=== PATIENT | female | born 1940 | race Caucasian/White ===

== ENCOUNTER → 2018-11-14 10:55 | Outpatient (CLI) | payer MEDICARE, SELFPAY ==
--- NOTE | 2018-11-14 11:07 | XR_ITS ---
EXAM: XR cervical spine 5V HISTORY: Neck pain ITS.REASON: DISORDER OF NECK ORDERING PHYSICIAN: Vicente العلي MD PATIENT AGE: 78 years COMPARISON: None FINDINGS: There is straightening of the cervical lordosis. This could be due to patient positioning or muscle spasm. There is degenerative disc disease at C3 C4, C4 C5, C5 C6, and C6-C7 most prominent at C5-6. Mild foraminal narrowing is present on the right C5-C6 and C6 have an. No fracture or dislocation. No lytic or blastic change. There is mild facet and uncovertebral arthritic changes from C4 to C7 with hypertrophy. No evidence of cervical rib. IMPRESSION: Cervical spondylosis with multilevel disc disease along with facet and uncovertebral arthrosis and foraminal narrowing as described above
== END ==
PROVIDERS: PCP Family Medicine; Visit Provider Family Medicine
DX: M53.82 Other specified dorsopathies, cervical region (principal)
CPT/HCPCS: 72050

== ENCOUNTER → 2019-09-05 09:29 | Outpatient (CLI) | payer MEDICARE, SELFPAY ==
--- NOTE | 2019-09-05 09:32 | XR_ITS ---
PROCEDURE: XR DEXA AXIAL SKELETON CLINICAL HISTORY: POSTMENOPAPUSAL COMPARISON: No exams were available for comparison FINDINGS: L1-L4 density is 1.168 grams/centimeter sq with a T-score of -1.0. Left femoral neck density is 0.784 grams/centimeters sq with T-score -1.8 consistent with osteopenia. IMPRESSION: Osteopenia with moderate fracture risk. Treatment advised. Suggest follow-up exam August 2021 Dictated by: Gordo Baker MD 09/05/2019 17:45 Electronically signed by Gordo Baker MD in [place] 09/05/2019 17:45
--- NOTE | 2019-09-05 09:32 | MM_ITS ---
PROCEDURE: MM DIG SCREENING MAMM BI W/CAD CLINICAL INDICATION: SCREENING There is a history of breast cancer the patient's sister diagnosed before menopause. There have been previous biopsies on each breast for benign disease. COMPARISON: DIGMAMMS MAMMOGRAM SCREEN-HOSPITAL TECHNICIAN N/C from 03/09/2010 [facility] DIGITAL MAMM-SCREEN BILATERAL from 07/24/2011 [facility] DIG MAMM-SCREEN LAKISHA from 12/31/2014 TECHNIQUE: Standard CC and MLO images were obtained. R2 CAD reviewed. FINDINGS: Moderate scattered fibroglandular densities are seen in both breasts. There is a mole marker left breast. There is faint arterial calcification in each breast more prominent left than right. There is no suspicious lesion and no suspicious microcalcifications. IMPRESSION: Moderate breast density with no suspicious lesions seen BI-RAD Category: 2 Benign Finding(s) FOLLOW-UP: 1YR 1 Year Follow-up (A letter has been sent to the patient regarding results of the study.) Dictated by: Dr. Nabil Luong MD 09/06/2019 15:[address] Nabil Luong MD in [place] 09/06/2019 15:44
== END ==
PROVIDERS: PCP Family Medicine; Visit Provider Physician Assistant
DX: Z12.31 Encounter for screening mammogram for malignant neoplasm of breast (principal); Z78.0 Asymptomatic menopausal state; M85.89 Other specified disorders of bone density and structure, multiple sites
CPT/HCPCS: 77067; 77080

== ENCOUNTER 2020-06-12 22:32 | Emergency (ER) | payer MEDICARE, SELFPAY ==
[2020-06-12 22:32] VITALS: BP 138/76; PULSE 76; RESP 16; TEMP 37.2; O2SAT 99; BMI 24.5
--- NOTE | 2020-06-12 22:44 | ECG_ITS ---
APPROVED REPORT Exam: Resting ECG HR:84 bpm ECG Measurements Heart Rate 84 AXES MT 170 P 67 QRSd 92 QRS 39 QT 374 T 63 QTc 441 <Conclusion> Normal sinus rhythm Normal ECG Electronically signed by : Mook Pina, 06/13/2020 19:50:42
--- NOTE | 2020-06-12 22:44 | XR_ITS ---
PROCEDURE: XR CHEST 2V CLINICAL HISTORY: chest pain Centralized chest pain COMPARISON: No exams were available for comparison FINDINGS: The cardiomediastinal silhouette and pulmonary vascularity are within normal limits. The lungs are clear without infiltrates, suspicious nodules, or pleural effusions. No acute bony abnormalities. IMPRESSION: No acute findings. Dictated by: Gordo Baker MD 06/13/2020 06:41 Gordo Baker MD in [place] 06/13/2020 06:41
[2020-06-12 22:53] LABS: Basophils # 0.1 K/mm3 (0-0.2); Eosinophils # 0.2 K/mm3 (0.0-0.4); Eosinophils % 2.5 % (0.1-12.0); Hematocrit 40.5 % (37.0-47.0); Hemoglobin 13.5 g/dL (12.2-16.2); Lymphocytes # 2.8 K/mm3 (0.7-4.5); Lymphocytes % 29.8 % (10-50); Mean Corpuscular HGB Conc 33.3 g/dL (31.8-35.4); Mean Corpuscular Hemoglobin 31.7 pg (27.0-31.2); Mean Corpuscular Volume 95.3 fl (81-99); Mean Platelet Volume 7.4 fl (7.4-10.4); Monocytes # 0.8 K/mm3 (0.1-1.0); Monocytes % 8.4 % (1.7-9.3); Neutrophils # 5.5 K/mm3 (1.8-7.8); Neutrophils % 58.3 % (37.0-80.0); Platelet Count 357 K/mm3 (142-424); Red Blood Count 4.25 M/mm3 (4.20-5.40); Red Cell Distribution Width 13.3 % (11.5-17.5); White Blood Count 9.4 K/mm3 (4.8-10.8)
[2020-06-12 23:00] LABS: Anion Gap 12.8 mEq/L (5-15); Blood Urea Nitrogen 24 mg/dl (7-17); Calcium 10.4 mg/dl (8.4-10.2); Carbon Dioxide 32 mmol/L (22.0-30.0); Chloride 96 mmol/L (98-107); Creatinine Clearance Estimated 36 mL/min (50-200); Estimated Glomerular Filt Rate 43 ml/min (>60); GFR (African American) 53 ML/MIN (>60); Glucose 112 mg/dl (74-100); Potassium 3.8 mmoL/L (3.5-5.1); Sodium 137 mmol/L (136-145)
--- NOTE | 2020-06-12 23:08 | HMH.EDGENADL ---
ED Disposition Clinical Impression: Chest pain Qualifiers: Chest pain type: unspecified Qualified Code(s): R07.9 - Chest pain, unspecified Disposition: Home, Self-Care Condition on Discharge: Good Referrals: Marybeth Dotson PA [Primary Care Provider] - - Critical Care Critical Care Time: No Attestation: On 06/12/20, the high probability of a clinically significant, sudden or life threatening deterioration of the following system(s) required my full and direct attention, intervention and personal management. The time I documented below is in addition to time spent performing reported procedures but includes the following listed in this critical care notation. Medical Decision Making - Leonardo Inquiry Pt receiving controlled substance: No Vital Signs: 06/12/20 22:32 06/13/20 00:03 06/13/20 01:16 Temperature 98.9 F Temperature Source Oral Pulse Rate [Right] 76 74 72 Respiratory Rate 16 16 18 Blood Pressure [Right Arm] 138/76 135/64 134/68 Blood Pressure Mean [Right Arm] 96 87 90 Blood Pressure Source [Right Arm] Automatic Cuff Automatic Cuff Blood Pressure Position [Right Arm] Sitting Sitting 02 Sat by Pulse Oximetry 99 98 98 Oxygen Delivery Method Room Air Room Air Room Air - Lab Data Lab Results 06/12/20 22:30: WBC 9.4, RBC 4.25, Hgb 13.5, Hct 40.5, MCV 95.3, MCH 31.7 H, MCHC 33.3, RDW 13.3, Plt Count 357, MPV 7.4, Neut % (Auto) 58.3, Lymph % (Auto) 29.8, Phillips % (Auto) 8.4, Eos % (Auto) 2.5, Baso % (Auto) 1.0, Neut # (Auto) 5.5, Lymph # (Auto) 2.8, Phillips # (Auto) 0.8, Eos # (Auto) 0.2, Baso # (Auto) 0.1 06/12/20 22:30: Sodium 137, Potassium 3.8, Chloride 96 L, Carbon Dioxide 32 H, Anion Gap 12.8, BUN 24 H, Creatinine 1.20 H, Estimated Creat Clear 36, Estimated GFR 43 L, Est GFR ( Amer) 53 L, Glucose 112 H, Calcium 10.4 H, Troponin I < 0.01 06/13/20 00:42: Troponin I < 0.01 Result diagrams: 06/12/20 22:30 06/12/20 22:30 Orders (Tests/Meds): ED MEDICATIONS Discontinued Medications Generic Name Dose Route Start Last Admin Trade Name Alicia PRN Reason Stop Dose Admin Jewel Alkaloids 60 ml 06/12/20 22:58 06/12/20 22:59 Gi Cocktail 60ml Udc PO 06/12/20 22:59 60 ml ONCE ONE Administration ORDERS Category Date Time Status Chest XR 2 view (NOT portable) [XR chest 2V] Stat Exams 06/12/20 22:44 Taken Troponin I Q3H Lab 06/13/20 04:45 Ordered Medical Decision Narrative: In summary patient presents for chest pain. At this point, the exact cause of the patient's current symptom complex is unknown. Initial EKG is nondiagnostic and initial delta troponin testing protocols are within normal limits. At the present time, I doubt pulmonary embolus secondary to the lack of tachycardia, tachypnea, or hypoxia. . Similarly, I doubt aortic dissection or abdominal aortic aneurysm secondary to history and description of pain, the patient's nonfocal vascular examination in all four extremities, and CXR unremarkable for signs of mediastinal widening. Doubt pneumothorax given good bilateral breath sounds and chest X ray with good lung markings out to the periphery. No signs suggestive of pneumonia on history or physical exam as well. General Adult HPI - General Chief complaint: Chest Pain Stated complaint: chest pain Time Seen by Provider: 06/12/20 23:09 Mode of Arrival: Ambulatory Source of Information: Patient Limitations: No Limitations Description of Symptoms (Recalled from ER Triage Doc. by RN): Pt advises she was eating some peanut butter and crackers earlier this evening and started having some in her chest and upper epigastric area, she describes it as a constant pain that would not go away and went into her back. Pt arrives and advises pain is gone at this time. - History of Present Illness HPI narrative: Patient presents for chest pain. Patient has past medical history of hypertension, GERD, gout, patient states that her pain started after she was eating some peanut
[2020-06-12 23:26] LABS: Troponin I < 0.01 ng/ml (0.00-0.034)
[2020-06-13 00:03] VITALS: BP 135/64; PULSE 74; RESP 16; O2SAT 98
[2020-06-13 01:14] LABS: Troponin I < 0.01 ng/ml (0.00-0.034)
[2020-06-13 01:16] VITALS: BP 134/68; PULSE 72; RESP 18; O2SAT 98
[2020-06-13 01:38] VITALS: BP 134/68; PULSE 74; RESP 16; TEMP 36.8; O2SAT 100
== END 2020-06-13 01:39 | disposition home or self-care (01) ==
PROVIDERS: Emergency Provider Emergency Medicine; PCP Physician Assistant
DX: R07.9 Chest pain, unspecified (principal); R10.13 Epigastric pain; I10 Essential (primary) hypertension; K21.9 Gastro-esophageal reflux disease without esophagitis
CPT/HCPCS: 71046; 80048; 84484; 85025; 93005; 99283

== ENCOUNTER → 2020-06-30 11:48 | Outpatient (CLI) | payer MEDICARE, SELFPAY ==
[2020-06-30 13:26] LABS: Potassium 4.8 mmoL/L (3.5-5.1); Uric Acid 4.7 mg/dl (2.5-6.2)
== END ==
PROVIDERS: Visit Provider Family Medicine
DX: E11.69 Type 2 diabetes mellitus with other specified complication (principal); E87.6 Hypokalemia
CPT/HCPCS: 36415; 84132; 84550

== ENCOUNTER 2020-10-18 11:42 | Emergency (ER) | payer MEDICARE, SELFPAY ==
[2020-10-18 13:06] VITALS: BP 137/86; PULSE 73; RESP 19; TEMP 36.6; O2SAT 99; BMI 25.1
--- NOTE | 2020-10-18 13:11 | HMH.EDUTC ---
[facility] [place] Disposition Clinical Impression: UTI (urinary tract infection) Qualifiers: Urinary tract infection type: site unspecified Hematuria presence: without hematuria Qualified Code(s): N39.0 - Urinary tract infection, site not specified Disposition: Home, Self-Care Condition on Discharge: Good Instructions: Urinary Tract Infection, DI for Urinary Tract Infection (UTI), Nitrofurantoin Additional Instructions: *Increase fluids. Water not Soda or Tea *Start antibiotic immediately and be sure to take as ordered for the FULL length of time although you should start to see improvement over the next 48 hours *Be SURE to follow up anytime for new or worsening symptoms with your family doctor. AND in 48 hours for urine culture results with your family doctor, if you do not have a doctor then you may call back to the [facility] for urine culture results and further treatment. We do recommend that you choose and establish care with a Primary Care Physician. AND follow up with them in 10-14 days to repeat UA to ensure infection is resolved and blood no longer present *Be sure to let your PCP know that we sent urine cultures from the [facility] so they can follow up to ensure that you area the on the correct antibiotic Call your doctor office and make appointment for 48 hours (2 days from today) to follow up and get the results of your urine culture and further treatment Return if needed Straight to ER if any life threatening symptoms Prescriptions: Nitrofurantoin Monohyd/M-Cryst [Macrobid 100 mg Capsule] 100 mg PO BID 7 Days #14 cap Transmission Status: Received by [facility] Referrals: Vicente العلي MD [Primary Care Provider] - As needed Time of Disposition: 13:21 Medical Decision Making - Leonardo Inquiry Pt receiving controlled substance: No Leonardo was queried for this patient: No Vital Signs: 10/18/20 13:06 10/18/20 13:21 Temperature 97.8 F 97.8 F Temperature Source Oral Pulse Rate 73 Pulse Rate [Right Brachial] 73 Respiratory Rate 19 19 Blood Pressure 137/86 Blood Pressure [Right Arm] 137/86 Blood Pressure Mean [Right Arm] 103 Blood Pressure Source [Right Arm] Automatic Cuff Blood Pressure Position [Right Arm] Sitting 02 Sat by Pulse Oximetry 99 - Lab Data Lab results reviewed: Yes: I reviewed the patient's lab results. Orders (Tests/Meds): ORDERS Category Date Time Status Urine Culture Stat Micro 10/18/20 12:50 Received [facility] [place] HPI - General Stated complaint: kidney infection Time Seen by Provider: 10/18/20 13:11 Mode of Arrival: Family Vehicle Description of Symptoms (Recalled from Triage Doc. by RN): PT STATES SHE IS HAVING RT SIDE FLANK PAIN X'S 2 DAYS HEENT Symptoms (Recalled from RN notes): No Resp Symptoms (Recalled from RN notes): No Skin Symptoms (Recalled from RN notes): No MS Symptoms (Recalled from RN notes): No Functional Status (Recalled from RN notes): WNL - History of Present Illness Provider Complaint: Patient states that she has been having achy like pain in her right flank area like she has had before when she had a UTI States thats that it has continued to get worse over the last 2-3 days so today she came in to get her urine checked - Related Data Previous Rx's Medication Instructions Recorded Nitrofurantoin Monohyd/M-Cryst 100 mg PO BID 7 Days #14 cap 10/18/20 [Macrobid 100 mg Capsule] Allergies Allergy/AdvReac Type Severity Reaction Status Date / Time NO KNOWN ALLERGIES Allergy Uncoded 10/02/17 14:59 - Worker's Comp Is this a Worker's Comp case?: No [facility] History - Hepatitis A Screen Drug use history?: No High risk sexual behaviors?: No History of sexually transmitted infection?: No Currently employed?: No Childcare worker?: No Do you have indoor plumbing?: Yes Do you have electricity?: Yes Attestation statement:: This patient has been screened for Hepatitis A risk factors. I have reviewed the patient's past medical history: Yes - Soc
[2020-10-18 13:21] VITALS: BP 137/86; PULSE 73; RESP 19; TEMP 36.6; O2SAT 99
[2020-10-18 21:13] LABS: Apearance,Urine Clear (Clear); Bilirubin,Urine Negative (Negative); Blood, Urine Negative (Negative); Color,Urine Yellow (Yellow); Glucose,Urine (UA) Negative (Negative); Ketones,Urine Negative (Negative); PH,Urine 7.5 (5.0-8.5); Protein,Urine Negative (Negative); Specific Gravity, Urine 1.015 (1.005-1.030); UTC Leukocyte Esterase,Urine Negative (Negative); UTC Nitrate,Urine Negative (Negative); Urobilinogen,Urine 0.2 EU/dl (0.2)
== END 2020-10-18 13:27 | disposition home or self-care (01) ==
PROVIDERS: Emergency Provider Nurse Practitioner; PCP Family Medicine
DX: N30.00 Acute cystitis without hematuria (principal)
CPT/HCPCS: G0463; 81003; 87086; 99202

== ENCOUNTER → 2021-03-11 08:32 | Outpatient (CLI) | payer MEDICARE, SELFPAY ==
[2021-03-11 10:06] LABS: Alanine Aminotransferase 15 U/L (12-78); Albumin Level 4.4 g/dl (3.5-5.0); Albumin/Globulin Ratio 1.8 (1.1-1.8); Alkaline Phosphatase 89 U/L (38-126); Anion Gap 10.2 mEq/L (5-15); Aspartate Amino Transferase 26 U/L (14-36); Bilirubin,Total 0.7 mg/dl (0.2-1.3); Blood Urea Nitrogen 22 mg/dl (7-17); Calcium 9.5 mg/dl (8.4-10.2); Carbon Dioxide 30 mmol/L (22.0-30.0); Chloride 103 mmol/L (98-107); Chol/HDL Ratio 3.4 (1-3.5); Cholesterol 206 mg/dl (140-200); Estimated Glomerular Filt Rate 40 ml/min (>60); GFR (African American) 48 ML/MIN (>60); Globulin 2.4 g/dL (1.3-3.2); Glucose 105 mg/dl (74-100); HDL Cholesterol 60 mg/dl (40-60); Potassium 4.2 mmoL/L (3.5-5.1); Sodium 139 mmol/L (136-145); Total Protein,Serum 6.8 g/dl (6.3-8.2); Triglycerides 96 mg/dl (30-150); VLDL Cholesterol 19 mg/dL (0-40)
[2021-03-11 10:16] LABS: Direct LDL Cholesterol 114.63 mg/dL (100-129)
== END ==
PROVIDERS: Visit Provider Internal Medicine Adolescent Medicine
DX: E78.5 Hyperlipidemia, unspecified (principal)
CPT/HCPCS: 36415; 80053; 80061

== ENCOUNTER 2021-07-08 16:08 | Emergency (ER) | payer MEDICARE, SELFPAY ==
[2021-07-08 16:10] VITALS: BP 177/81; PULSE 68; RESP 20; TEMP 37.3; O2SAT 95; BMI 24.5
[2021-07-08 17:02] LABS: Apearance,Urine Clear (Clear); Bilirubin,Urine Negative (Negative); Blood, Urine Negative (Negative); Color,Urine Yellow (Yellow); Glucose,Urine (UA) Negative (Negative); Ketones,Urine Negative (Negative); PH,Urine 6.5 (5.0-8.5); Protein,Urine Negative (Negative); UTC Leukocyte Esterase,Urine 1+ (Negative); UTC Nitrate,Urine Negative (Negative); Urobilinogen,Urine 0.2 EU/dl (0.2)
--- NOTE | 2021-07-08 17:11 | HMH.EDUTC ---
[facility] [place] Disposition Clinical Impression: UTI (urinary tract infection) Qualifiers: Urinary tract infection type: site unspecified Hematuria presence: with hematuria Qualified Code(s): N39.0 - Urinary tract infection, site not specified Disposition: Home, Self-Care Condition on Discharge: Good Instructions: Urinary Tract Infection, DI for Urinary Tract Infection (UTI), Phenazopyridine Additional Instructions: Drink plenty of fluids. Take tylenol or ibuprofen for pain or fever. Take the medications as directed. Follow up with your regular doctor. GO TO THE ER FOR ANY WORSENING SYMPTOMS The pyridium will make your urine turn orange, this is an expected side effect. It will stain your clothes if it comes into contact with them. Prescriptions: Sulfamethoxazole/Trimethoprim [Bactrim DS tablet] 1 each PO BID 7 Days #14 tab Transmission Status: Received by [facility] Phenazopyridine HCl [Pyridium 200mg Tablet] 200 pow PO TID #6 tab Transmission Status: Received by [facility] Referrals: Huey Tracy MD [Primary Care Provider] - Time of Disposition: 17:20 Medical Decision Making - Medical Records Medical records reviewed: No: I reviewed the patient's medical records. - Leonardo Inquiry Pt receiving controlled substance: No Vital Signs: 07/08/21 16:10 07/08/21 17:23 Temperature 99.2 F 99.2 F Temperature Source Oral Pulse Rate 68 Pulse Rate [Right Brachial] 68 Respiratory Rate 20 20 Blood Pressure 177/81 H Blood Pressure [Right Arm] 177/81 H Blood Pressure Mean [Right Arm] 113 Blood Pressure Source [Right Arm] Automatic Cuff Blood Pressure Position [Right Arm] Sitting 02 Sat by Pulse Oximetry 95 Oxygen Delivery Method Room Air - Lab Data Lab results reviewed: Yes: I reviewed the patient's lab results. Lab Results 07/08/21 16:53: Urine Color Yellow, Urine Appearance Clear, Urine pH 6.5, Ur Specific [place] 1.020, Urine Protein Negative, Urine Glucose (UA) Negative, Urine Ketones Negative, Urine Blood Negative, Urine Nitrate Negative, Urine Bilirubin Negative, Urine Urobilinogen 0.2, Ur Leukocyte Esterase 1+ A Orders (Tests/Meds): ORDERS Category Date Time Status Urine Culture Stat Micro 07/08/21 16:35 Received [facility] [place] HPI - General Stated complaint: possible UTI or bladdler Time Seen by Provider: 07/08/21 17:11 Mode of Arrival: Ambulatory Source of Information: Patient Limitations: No Limitations Description of Symptoms (Recalled from Triage Doc. by RN): PATIENT C/O LOWER BACK PAIN X 1 WEEK. ALSO REPORTS A FEW EPISODES OF PELVIC PRESSURE AND URINARY FREQUENCY HEENT Symptoms (Recalled from RN notes): No Resp Symptoms (Recalled from RN notes): No Skin Symptoms (Recalled from RN notes): No MS Symptoms (Recalled from RN notes): No Functional Status (Recalled from RN notes): WNL - History of Present Illness Provider Complaint: She states that for the past 2 days she has has had burning with urination. She has had low back pain also. - Related Data Home Medications Medication Instructions Recorded Confirmed Aspirin [Aspirin 81mg chewable 81 mg PO DAILY 07/08/21 07/08/21 tab] Atorvastatin Calcium [Lipitor 10mg 10 mg PO HS 07/08/21 07/08/21 Tab] Triamterene/Hydrochlorothiazid 1 each PO DAILY 07/08/21 07/08/21 [Triamterene-Hctz 37.5-25 mg Tb] atenoloL [Atenolol 25mg Tab] 25 mg PO DAILY 07/08/21 07/08/21 Previous Rx's Medication Instructions Recorded Phenazopyridine HCl [Pyridium 200 pow PO TID #6 tab 07/08/21 200mg Tablet] Sulfamethoxazole/Trimethoprim 1 each PO BID 7 Days #14 tab 07/08/21 [Bactrim DS tablet] Allergies Allergy/AdvReac Type Severity Reaction Status Date / Time No Known Allergies Allergy Verified 07/08/21 16:50 - Worker's Comp Is this a Worker's Comp case?: No [facility] History - Hepatitis A Screen Drug use history?: No High risk sexual behaviors?: No History of sexually transmitte
[2021-07-08 17:23] VITALS: BP 177/81; PULSE 68; RESP 20; TEMP 37.3; O2SAT 95
== END 2021-07-08 17:28 | disposition home or self-care (01) ==
PROVIDERS: Emergency Provider Nurse Practitioner Family; PCP Internal Medicine Adolescent Medicine
DX: N30.00 Acute cystitis without hematuria (principal)
CPT/HCPCS: G0463; 81003; 87086; 99202

== ENCOUNTER → 2021-08-02 11:39 | Outpatient (CLI) | payer MEDICARE, SELFPAY ==
[2021-08-02 11:57] LABS: Basophils # 0.1 K/mm3 (0-0.2); Basophils % 0.6 % (0.1-2.0); Eosinophils # 0.2 K/mm3 (0.0-0.4); Eosinophils % 2.6 % (0.1-12.0); Hematocrit 43.4 % (37.0-47.0); Hemoglobin 13.7 g/dL (12.2-16.2); Lymphocytes # 1.2 K/mm3 (0.7-4.5); Mean Corpuscular HGB Conc 31.5 g/dL (31.8-35.4); Mean Corpuscular Hemoglobin 31.1 pg (27.0-31.2); Mean Corpuscular Volume 98.9 fl (81-99); Mean Platelet Volume 6.9 fl (7.4-10.4); Monocytes # 0.4 K/mm3 (0.1-1.0); Monocytes % 5.2 % (1.7-9.3); Neutrophils # 5.7 K/mm3 (1.8-7.8); Neutrophils % 75.5 % (37.0-80.0); Platelet Count 356 K/mm3 (142-424); Red Blood Count 4.39 M/mm3 (4.20-5.40); Red Cell Distribution Width 12.7 % (11.5-17.5); White Blood Count 7.5 K/mm3 (4.8-10.8)
[2021-08-02 13:28] LABS: Erythrocyte Sedimentation Rate 17 mm/hr (0-30)
[2021-08-02 13:31] LABS: 25-OH Vitamin D, Total 49.8 ng/mL (30-100)
[2021-08-02 14:07] LABS: Alanine Aminotransferase 20 U/L (12-78); Albumin Level 4.4 g/dl (3.5-5.0); Albumin/Globulin Ratio 1.6 (1.1-1.8); Alkaline Phosphatase 93 U/L (38-126); Anion Gap 13.7 mEq/L (5-15); Aspartate Amino Transferase 32 U/L (14-36); Bilirubin,Total 0.5 mg/dl (0.2-1.3); Blood Urea Nitrogen 16 mg/dl (7-17); Calcium 10.1 mg/dl (8.4-10.2); Carbon Dioxide 32 mmol/L (22.0-30.0); Chloride 100 mmol/L (98-107); Cholesterol 204 mg/dl (140-200); Estimated Glomerular Filt Rate 53 ml/min (>60); GFR (African American) 65 ML/MIN (>60); Globulin 2.8 g/dL (1.3-3.2); Glucose 108 mg/dl (74-100); HDL Cholesterol 67 mg/dl (40-60); Potassium 4.7 mmoL/L (3.5-5.1); Sodium 141 mmol/L (136-145); Total Protein,Serum 7.2 g/dl (6.3-8.2); Triglycerides 123 mg/dl (30-150); VLDL Cholesterol 25 mg/dL (0-40)
[2021-08-02 14:18] LABS: C-Reactive Protein 2.2 mg/L (0-4); Direct LDL Cholesterol 99.95 mg/dL (100-129)
[2021-08-02 14:37] LABS: Thyroid Stimulating Hormone 1.58 uIU/mL (0.465-4.68)
[2021-08-02 14:56] LABS: Vitamin B12 295 pg/mL (239-931)
[2021-08-03 12:24] LABS: Hemoglobin A1C 5.8 % (4.0-6.0)
== END ==
PROVIDERS: Visit Provider Nurse Practitioner Family
DX: Z00.00 Encounter for general adult medical examination without abnormal findings (principal); I10 Essential (primary) hypertension; E78.5 Hyperlipidemia, unspecified; R53.83 Other fatigue; M12.9 Arthropathy, unspecified; R73.9 Hyperglycemia, unspecified
CPT/HCPCS: 36415; 80053; 80061; 82306; 82607; 83036; 84443; 85025; 85651; 86140

== ENCOUNTER → 2021-08-15 15:58 | Outpatient (CLI) | payer MEDICARE, SELFPAY | PROVIDERS: Visit Provider Nurse Practitioner Family | DX: R31.9 Hematuria, unspecified (principal) | CPT/HCPCS: 87086; 87088; 87186 ==

== ENCOUNTER → 2021-09-01 16:48 | Outpatient (CLI) | payer MEDICARE, SELFPAY | PROVIDERS: Visit Provider Nurse Practitioner Family | DX: R31.9 Hematuria, unspecified (principal) | CPT/HCPCS: 87086 ==

== ENCOUNTER → 2022-01-19 06:41 | Outpatient (CLI) | payer MEDICARE, SELFPAY ==
--- NOTE | 2022-01-19 06:48 | CT_ITS ---
FINAL REPORT TECHNIQUE: Axial images through the abdomen and pelvis were performed without contrast. This study was performed with techniques to keep radiation doses as low as reasonably achievable, (ALARA). Individualized dose reduction techniques using automated exposure control or adjustment of mA and/or kV according to the patient's size were employed. CLINICAL HISTORY: RIGHT FLANK PAIN, hematuria FINDINGS: ABDOMEN: The lung bases are clear. The heart size is normal. There is a small hiatal hernia. There is a 5.7 cm mass in left hepatic lobe which cannot be accurately characterized without contrast, favor a cyst. The spleen is normal. No adrenal mass is identified. The aorta is normal in caliber. There is no significant free fluid or adenopathy. There is moderate coronary artery calcification. There is a 13 mm mass in the upper pole of the left kidney which cannot be accurately characterized without contrast, may represent a cyst. There is no nephrolithiasis. There is no hydronephrosis. There is a small umbilical hernia containing fat. Small inguinal hernias containing fat are also identified. PELVIS: The appendix is not identified. The urinary bladder is unremarkable. There is no significant free fluid or adenopathy. IMPRESSION: Hepatic and renal masses as detailed above. If indicated, CT abdomen and pelvis with contrast could further evaluate. Umbilical and inguinal hernias containing fat. Reviewed, Interpreted and Dictated by Willam Cotto III, MD Transcribed by Karina Corcoran Authenticated by Willam Cotto III, MD on 01/19/2022 08:34:52 AM [facility]
== END ==
PROVIDERS: PCP Internal Medicine Adolescent Medicine; Visit Provider Internal Medicine Adolescent Medicine
DX: R10.9 Unspecified abdominal pain (principal)
CPT/HCPCS: 74176

== ENCOUNTER → 2022-02-16 08:26 | Outpatient (CLI) | payer MEDICARE, SELFPAY ==
--- NOTE | 2022-02-16 08:50 | CT_ITS ---
FINAL REPORT CLINICAL HISTORY: RT FLANK PAIN COMPARISON: January 19, 2022 FINDINGS: CT OF THE ABDOMEN AND PELVIS WITH CONTRAST Axial CT images of the abdomen and pelvis were obtained after the administration of IV contrast. Coronal reformatted images were also obtained and reviewed.This study was performed with techniques to keep radiation doses as low as reasonably achievable (ALARA). Individualized dose reduction techniques using automated exposure control or adjustment of mA and/or kV according to the patient's size were employed. Abdomen: There is mild bibasilar atelectasis or scarring. The heart is normal in size. A small hiatal hernia is present. There are moderate vascular calcifications. The 6 cm left hepatic lobe mass does not show evidence of contrast enhancement and is consistent with a cyst. There is a less than 1 cm cyst in the inferior right hepatic lobe. The spleen is unremarkable. No adrenal mass is present. The pancreas has an unremarkable appearance. The 15 mm left kidney mass also has an appearance consistent with a cyst. There is a less than 1 cm cyst in the lower pole of the right kidney. There is an 8 mm mass in the medial right kidney which does not appear to be a simple cyst. This mass probably shows contrast enhancement along its medial border and is worrisome for a small renal neoplasm such as renal cell carcinoma. This is well visualized on image 39 of series 2 and image 31 of series 601. The aorta is normal in caliber. There is no free fluid or adenopathy. No mass or abnormal fluid collection is seen. There is a small umbilical hernia containing fat. Pelvis: The urinary bladder is unremarkable. No inflammatory process is seen. There is no evidence of mass or adenopathy. There is no evidence of bowel obstruction. There is scattered diverticula. There are small inguinal hernias containing fat. There is a small amount of pelvic free fluid which is likely reactive. IMPRESSION: 8 mm mass in the medial right kidney which is worrisome for a small renal neoplasm. Other renal cysts and hepatic cysts as described. Small amount of pelvic free fluid is likely reactive. Reviewed, Interpreted and Dictated by Willam Cotto III, MD Transcribed by Angelic Leos Authenticated by Willam Cotto III, MD on 02/16/2022 11:20:39 AM [facility]
[2022-02-16 08:51] LABS: Blood Urea Nitrogen 17 mg/dl (7-17); Estimated Glomerular Filt Rate 69 ml/min (>60); GFR (African American) 84 ML/MIN (>60)
== END ==
PROVIDERS: PCP Internal Medicine Adolescent Medicine; Visit Provider Internal Medicine Adolescent Medicine
DX: R10.9 Unspecified abdominal pain (principal)
CPT/HCPCS: 36415; 74177; 82565; 84520; Q9967

== ENCOUNTER → 2022-03-02 13:21 | Outpatient (CLI) | payer MEDICARE, SELFPAY ==
--- NOTE | 2022-03-02 13:25 | XR_ITS ---
FINAL REPORT CLINICAL HISTORY: LT POSTERIOR MID BACK PAIN HX OF RT RENAL MASS COMPARISON: June 12, 2020 FINDINGS: LEFT RIB SERIES 4 views of the left ribs were obtained. There is a left 11th posterior rib fracture. There is mild left base atelectasis or scarring. There is no pneumothorax or pleural fluid collection. IMPRESSION: Left 11th posterior rib fracture. Mild left base atelectasis or scarring. Reviewed, Interpreted and Dictated by Willam Cotto III, MD Transcribed by Kerry Cole Authenticated by Willam Cotto III, MD on 03/02/2022 02:42:50 PM [facility]
--- NOTE | 2022-03-02 13:25 | XR_ITS ---
FINAL REPORT TECHNIQUE: 2 views CLINICAL HISTORY: LT POSTERIOR MID BACK PAIN HX OF RT RENAL MASS FINDINGS: There is no fracture present. There is no malalignment. There is mild degenerative change of the lower thoracic spine. IMPRESSION: Degenerative change as above with no acute process. Reviewed, Interpreted and Dictated by Willam Cotto III, MD Transcribed by Kerry Cole Authenticated by Willam Cotto III, MD on 03/02/2022 02:42:[address] [facility]
== END ==
PROVIDERS: PCP Internal Medicine Adolescent Medicine; Visit Provider Nurse Practitioner Family
DX: M54.6 Pain in thoracic spine (principal); N28.89 Other specified disorders of kidney and ureter
CPT/HCPCS: 71101; 72072

== ENCOUNTER → 2022-04-07 11:53 | Outpatient (CLI) | payer MEDICARE, SELFPAY ==
--- NOTE | 2022-04-07 11:59 | XR_ITS ---
FINAL REPORT CLINICAL HISTORY: LEFT HIP PAIN. LOW BACK PAIN. OTHER CHRONIC PAIN. Pt states she believes that she is having sciatic pain. FINDINGS: 5 views of the lumbar spine were obtained. There is no evidence of fracture or dislocation. There is right lateral subluxation of L2 in relation to L1 and right lateral subluxation of L3 in relation to L4. There are moderate to severe degenerative changes. There is vacuum phenomenon at L3-4. Rightward curvature is noted. There are moderate vascular calcifications. IMPRESSION: Right lateral subluxation as above. Degenerative changes. Reviewed, Interpreted and Dictated by Willam Cotto III, MD Transcribed by Kerry Cole Authenticated and [facility]
--- NOTE | 2022-04-07 11:59 | XR_ITS ---
FINAL REPORT CLINICAL HISTORY: Pt states that she has been experiencing lt hip pain more severely for the last 4 weeks. No known trauma. FINDINGS: LEFT HIP: Three views of the left hip demonstrate no acute fracture or dislocation. The joint spaces appear normal. The visualized bony structures are well aligned. Mild vascular calcifications are seen. IMPRESSION: No acute bony abnormality. Reviewed, Interpreted and Dictated by Willam Cotto III, MD Transcribed by Kerry Cole Authenticated and [facility]
== END ==
PROVIDERS: PCP Nurse Practitioner Family; Visit Provider Nurse Practitioner Family
DX: M25.552 Pain in left hip (principal); M54.50 Low back pain, unspecified; G89.29 Other chronic pain
CPT/HCPCS: 72110; 73502

== ENCOUNTER → 2022-09-16 10:18 | Outpatient (CLI) | payer MEDICARE, SELFPAY | PROVIDERS: PCP Internal Medicine Adolescent Medicine; Visit Provider Nurse Practitioner Family | DX: R30.0 Dysuria (principal) | CPT/HCPCS: 87086 ==

== ENCOUNTER 2023-04-14 00:33 | Emergency (ER) | payer MEDICARE, SELFPAY ==
[2023-04-14] VITALS (7 sets, daily range): BP systolic 168–220; BP diastolic 85–113; PULSE 74–86; RESP 12–19; TEMP 36.8–36.9; O2SAT 95–98; BMI 25.9
--- NOTE | 2023-04-14 00:49 | ECG_ITS ---
APPROVED REPORT Exam: Resting ECG HR:82 bpm ECG Measurements Heart Rate 82 AXES LA 168 P 67 QRSd 106 QRS 66 QT 379 T 76 QTc 417 Conclusion SINUS RHYTHM POSSIBLE RIGHT VENTRICULAR CONDUCTION DELAY [RSR (QR) IN V1/V2] BORDERLINE ECG UNCONFIRMED REPORT Electronically signed by : Huey Tracy MD 04/14/2023 15:03:25
--- NOTE | 2023-04-14 01:01 | XR_ITS ---
PROCEDURE INFORMATION: Exam: XR Chest Exam date and time: 04/14/2023 1:01 AM Age: 83 years old Clinical indication: Other: HTN; Additional info: Severe HTN TECHNIQUE: Imaging protocol: Radiologic exam of the chest. Views: 1 view. COMPARISON: CR XR RIBS LT MIN 3V W CXR1V 03/02/2022 1:30 PM FINDINGS: Lungs: Moderate lung expansion. Mild left basilar atelectasis. No consolidation. Pleural spaces: No pleural effusion. No pneumothorax. Heart/Mediastinum: Stable cardiomediastinal silhouette. Diaphragm: Chronic mild elevation of the left hemidiaphragm. Bones/joints: No acute osseous abnormality. IMPRESSION: No acute findings.
--- NOTE | 2023-04-14 01:02 | PC.NURSE ---
Pt medicated per VO from MD. Call barnes within reach and pt educated on use. Visitor at beside, and pt agreeable with POC
--- NOTE | 2023-04-14 01:03 | HMH.EDGENADL ---
Discharge Plan Disposition Patient Disposition: Home, Self-Care Condition: Good Chief Complaint: Headache Prescriptions Prescriptions: No Action omeprazole 20 mg capsule,delayed release(DR/EC) 20 mg PO DAILY atorvastatin 10 MG tablet 10 mg PO HS aspirin 81 MG tablet,chewable 81 mg PO DAILY carvedilol 12.5 mg Tablet 12.5 mg PO BID Rx Instructions: must administer with a meal/food Referrals Follow up/Referrals: Huey Long MD [Primary Care Provider] - See instructions Activity Restrictions/Add. Instructions Additional Instructions/Restrictions: At this time is felt you are safe to be discharged home. If new or worsening symptoms please not hesitate to return the emergency department. If symptoms such as chest pain, shortness of breath, if your blood pressure gets greater than 220 please return for repeat evaluation. Please follow-up with your family doctor in the morning for medication adjustment otherwise follow-up as soon as you are able. Clinical Impressions Clinical Impression: Hypertensive urgency Discharge ED Provider: Regulo Manuel General Adult HPI General Chief complaint: Headache Stated complaint: BP medicine was changed, now with HBP Time Seen by Provider: 04/14/23 00:45 Mode of Arrival: Ambulatory Source of Information: Patient Limitations: No Limitations Description of Symptoms (Recalled from ER Triage Doc. by RN): 83 F presents from home concerned about her blood pressure being too high. She report Dr. long changed her BP medications on Sunday because of kidney issues, and her new single BP medication is not working. Patient reports headache and blurry vision. Denies chest pain or shortness of air. History of Present Illness HPI narrative: Patient is an 83-year-old female with past medical history of hypertension previously on multiple medications, CKD, right renal mass currently under surveillance who presents emergency department for evaluation of elevated blood pressure. History is obtained by patient at bedside. Patient was recently changed from triamterene/hydrochlorothiazide and atenolol to 12.5 mg of carvedilol twice daily. After taking her evening dose she has noticed that her blood pressure has been continuing to climb and has resulted in pressure between her temples. Patient denies chest pain, shortness of breath, visual blurriness, other acute complaints at this time. Related Data Home Medications Medication Instructions Recorded Confirmed aspirin 81 mg chewable tablet 81 mg PO DAILY Heart disease 07/08/21 04/14/23 atorvastatin 10 mg tablet 10 mg PO HS Cholesterol 07/08/21 04/14/23 omeprazole 20 mg capsule,delayed 20 mg PO DAILY Acid Reflux 03/30/22 04/14/23 release carvedilol 12.5 mg tablet 12.5 mg PO BID High Blood Pressure 04/14/23 04/14/23 Allergies Allergy/AdvReac Type Severity Reaction Status Date / Time No Known Allergies Allergy Verified 03/30/22 09:22 [facility] Disclaimer: The information contained in this section may have been updated after the patient was seen, as this information can be updated by other users. Social History Smoking Status: Never smoker alcohol intake: never substance use type: denies use current occupational status: retired Travel in the last 8 weeks: None household members: none housing: house ROS Obtained: Yes Systems reviewed as appropriate & no additional complaints except as documented Physical Exam General General appearance: alert and in no apparent distress Head Head exam: atraumatic and normocephalic Eye Eye exam: Present PERRL and EOMI ENT ENT exam: Present mucous membranes moist Neck Neck exam: Present normal inspection Chest Chest inspection: Present normal inspection and symmetric chest wall rise Respiratory Respiratory exam: Present normal lung sounds bilaterally; Absent respiratory distress Cardiovascular Cardiovascular exam: Present regular rate and
[2023-04-14 01:06] LABS: Basophils % 0.5 % (0.1-2.0); Eosinophils # 0.2 K/mm3 (0.0-0.4); Eosinophils % 2.7 % (0.1-12.0); Hematocrit 39.1 % (37.0-47.0); Hemoglobin 12.1 g/dL (12.2-16.2); Lymphocytes # 2.2 K/mm3 (0.7-4.5); Lymphocytes % 27.9 % (10-50); Mean Corpuscular HGB Conc 30.9 g/dL (31.8-35.4); Mean Corpuscular Hemoglobin 29.4 pg (27.0-31.2); Mean Corpuscular Volume 95.2 fl (81-99); Mean Platelet Volume 7.3 fl (7.4-10.4); Monocytes # 0.6 K/mm3 (0.1-1.0); Neutrophils # 4.9 K/mm3 (1.8-7.8); Neutrophils % 61.8 % (37.0-80.0); Platelet Count 333 K/mm3 (142-424); Red Blood Count 4.11 M/mm3 (4.20-5.40); Red Cell Distribution Width 13.2 % (11.5-17.5); White Blood Count 7.9 K/mm3 (4.8-10.8)
[2023-04-14 01:08] LABS: Chloride 103 mmol/L (98-107); Sodium 139 mmol/L (136-145)
[2023-04-14 01:09] LABS: Potassium 3.8 mmoL/L (3.5-5.1)
[2023-04-14 01:11] LABS: Alanine Aminotransferase 21 U/L (12-78); Albumin Level 4.1 g/dl (3.5-5.0); Albumin/Globulin Ratio 1.4 (1.1-1.8); Alkaline Phosphatase 103 U/L (38-126); Anion Gap 11.8 mEq/L (5-15); Aspartate Amino Transferase 32 U/L (14-36); Bilirubin,Total 0.3 mg/dl (0.2-1.3); Blood Urea Nitrogen 18 mg/dl (7-17); Carbon Dioxide 28 mmol/L (22.0-30.0); Creatinine Clearance Estimated 38 mL/min (50-200); Estimated Glomerular Filt Rate 48 ml/min (>60); GFR (African American) 58 ML/MIN (>60); Globulin 2.9 g/dL (1.3-3.2)
[2023-04-14 01:12] LABS: Glucose 107 mg/dl (74-100)
[2023-04-14 01:25] LABS: Troponin I < 0.01 ng/ml (0.00-0.034)
== END 2023-04-14 02:03 | disposition home or self-care (01) ==
PROVIDERS: Emergency Provider Emergency Medicine; PCP Internal Medicine Adolescent Medicine
DX: I16.0 Hypertensive urgency (principal); I10 Essential (primary) hypertension
CPT/HCPCS: 71045; 80053; 84484; 85025; 93005; 93041; 96374; 99284

== ENCOUNTER 2023-04-14 10:06 | Emergency (ER) | payer MEDICARE, SELFPAY ==
[2023-04-14 10:07] VITALS: BP 190/87; PULSE 78; RESP 16; TEMP 36.8; O2SAT 96; BMI 25.9
--- NOTE | 2023-04-14 10:22 | EXP.UTC ---
Discharge Plan Disposition Patient Disposition: Home, Self-Care Condition: Good Prescriptions Prescriptions: New triamterene-hydrochlorothiazid 37.5-25 mg capsule 1 cap PO DAILY Qty: 30 0RF No Action omeprazole 20 mg capsule,delayed release(DR/EC) 20 mg PO DAILY atorvastatin 10 MG tablet 10 mg PO HS aspirin 81 MG tablet,chewable 81 mg PO DAILY carvedilol 12.5 mg Tablet 12.5 mg PO BID Rx Instructions: must administer with a meal/food Referrals Follow up/Referrals: Huey Tracy MD [Primary Care Provider] - See instructions Activity Restrictions/Add. Instructions Additional Instructions/Restrictions: Take coreg (carvedilol) 12.5 mg tablets--Take 2 in the morning and one at night. Restart on your triamterene/hctz 37.5/25 mg tablets daily. Follow up with your primary care provider on Sunday. Follow their instructions from then on. GO TO THE ER FOR ANY WORESNING SYMPTOMS OR CONCERNS, ESPECIALLY ANY ELEVATED BLOOD PRESSURE ABOVE 200/110. Clinical Impressions Clinical Impression: Hypertension Instructions Patient Instructions: Essential Hypertension Discharge ED Provider: Jarek Castro [facility] General Stated complaint: head pressure, blood pressure high Time Seen by Provider: 04/14/23 10:22 History of Present Illness Provider Complaint: He is here with complaints of hypertension with head pressure. She was in the ER last night with the same complaint. She states that earlier in the week her pcp switched her blood pressure meds around (stopped trimterine/hctz and atenolol and started on coreg) because she had some renal insufficiency that showed up on her blood work. She states that before her blood pressure meds were changed she never had very high blood pressures. Since they were changed she has ran up to 210/110. She denies any chest pain and shortness of breath. Related Data Home Medications Medication Instructions Recorded Confirmed aspirin 81 mg chewable tablet 81 mg PO DAILY Heart disease 07/08/21 04/14/23 atorvastatin 10 mg tablet 10 mg PO HS Cholesterol 07/08/21 04/14/23 omeprazole 20 mg capsule,delayed 20 mg PO DAILY Acid Reflux 03/30/22 04/14/23 release carvedilol 12.5 mg tablet 12.5 mg PO BID High Blood Pressure 04/14/23 04/14/23 Previous Rx's Medication Instructions Recorded triamterene 37.5 1 cap PO DAILY #30 caps 04/14/23 mg-hydrochlorothiazide 25 mg capsule Allergies Allergy/AdvReac Type Severity Reaction Status Date / Time No Known Allergies Allergy Verified 03/30/22 09:22 [facility] Disclaimer: The information contained in this section may have been updated after the patient was seen, as this information can be updated by other users. Social History Smoking Status: Never smoker alcohol intake: never substance use type: denies use current occupational status: retired Travel in the last 8 weeks: None household members: none housing: house ROS Obtained: Yes All systems reviewed & no additional complaints except as documented Constitutional Constitutional: Denies chills and Denies fever(s) Eyes Eyes: Denies eye discharge ENT Ears, Nose, Mouth, and Throat: Denies dizziness, Denies otalgia and Denies sore throat Cardiovascular Cardiovascular: Denies chest pain Respiratory Respiratory: Denies shortness of breath, Denies chest congestion, Denies cough, Denies stridor and Denies wheezing Gastrointestinal Gastrointestingal: Denies nausea or vomiting Musculoskeletal Musculoskeletal: Reports system reviewed and no additional complaints, except as documented and Denies arthralgias Integumentary/Breasts Skin/Breast: Denies rash Neurologic Neurologic: Denies dizziness and Denies paresthesias Allergic/Immunologic Allergic/Immunologic: Denies wheezing Physical Exam General General appearance: alert and in no apparent distress Head Head exam: atraumatic, normocephalic and normal inspection
[2023-04-14 11:22] VITALS: BP 180/90
[2023-04-14 11:49] VITALS: BP 180/90; PULSE 78; RESP 16; TEMP 36.8; O2SAT 96
== END 2023-04-14 11:55 | disposition home or self-care (01) ==
PROVIDERS: Emergency Provider Nurse Practitioner Family; PCP Internal Medicine Adolescent Medicine
DX: I10 Essential (primary) hypertension (principal); R51.9 Headache, unspecified; I16.0 Hypertensive urgency
CPT/HCPCS: 71045; 80053; 84484; 85025; 93005; 93041; 96374; 99212; 99214; 99284; G0463

== ENCOUNTER → 2023-04-18 10:27 | Outpatient (CLI) | payer MEDICARE, SELFPAY ==
--- NOTE | 2023-04-18 10:40 | MM_ITS ---
PROCEDURE INFORMATION: Exam: MG Bilateral Screening 3D Mammography Exam date and time: 04/18/2023 10:35 AM Age: 83 years old Clinical indication: Screening mammogram TECHNIQUE: Imaging protocol: Bilateral Screening tomosynthesis and 2D mammography including computer-aided detection (CAD) when performed. COMPARISON: 1. MG MM DIG SCREENING MAMM BI W/CAD 09/05/2019 10:10 AM 2. MG DMSB DIG MAMM-SCREEN LAKISHA 12/31/2014 10:17 AM 3. MG DMSB DIGITAL MAMM-SCREEN BILATERAL 07/24/2011 4:47 PM 4. MG DIGMAMMS MAMMOGRAM SCREEN-ACQUISITION EDITOR N/C 03/09/2010 2:37 PM FINDINGS: MAMMOGRAPHY: Breast composition: There are scattered areas of fibroglandular density. Mass: None. Architectural distortion: No new or suspicious architectural distortion. Calcifications: Stable benign-appearing calcifications are present. No new or suspicious cluster of microcalcifications have developed. Asymmetric density: No new or suspicious asymmetric density is present Skin thickening: None. Axillary adenopathy: None. IMPRESSION: No mammographic evidence of malignancy. Recommend annual screening mammography unless otherwise clinically indicated. ASSESSMENT: BI-RADS category 2: Benign
== END ==
PROVIDERS: PCP Nurse Practitioner Family; Visit Provider Physician Assistant
DX: Z12.31 Encounter for screening mammogram for malignant neoplasm of breast (principal); R06.02 Shortness of breath
CPT/HCPCS: 77063; 77067; 93306

== ENCOUNTER → 2023-07-05 10:58 | Outpatient (CLI) | payer MEDICARE, SELFPAY ==
--- NOTE | 2023-07-05 11:01 | XR_ITS ---
FINAL REPORT CLINICAL HISTORY: NECK PAIN COMPARISON: None FINDINGS: CERVICAL SPINE 5 views were obtained. There is no acute fracture or malalignment. There is moderate disc space narrowing at C5-6. There is loss of the normal cervical lordosis. There are small posterior osteophytes at C5-6 and C6-7. Facet joints are properly aligned. IMPRESSION: Degenerative changes without acute process. Reviewed, Interpreted and Dictated by Rajiv Avila MD Transcribed by Kerry Cole Authenticated and [facility]
--- NOTE | 2023-07-05 11:01 | XR_ITS ---
FINAL REPORT CLINICAL HISTORY: Right upper arm pain COMPARISON: None FINDINGS: Two views of the right humerus were obtained. There is no acute fracture or dislocation. The joint spaces are well preserved. There is no acute soft tissue abnormality. IMPRESSION: No acute abnormality identified. Reviewed, Interpreted and Dictated by Rajiv Avila MD Transcribed by Kerry Cole Authenticated and [facility]
== END ==
PROVIDERS: PCP Internal Medicine Adolescent Medicine; Visit Provider Nurse Practitioner Family
DX: M54.2 Cervicalgia (principal); M79.601 Pain in right arm
CPT/HCPCS: 72050; 73060

== ENCOUNTER 2024-11-07 14:54 | Outpatient (CLI) | payer MEDICARE, SELFPAY | END 2024-11-07 23:59 | disposition home or self-care (01) | LOC: LAB 14:56 | PROVIDERS: PCP Internal Medicine Adolescent Medicine; Visit Provider Physician Assistant | DX: R31.9 Hematuria, unspecified (principal) | CPT/HCPCS: 87086 ==

== ENCOUNTER 2025-04-22 20:13 | Emergency (ER) | payer MEDICARE, SELFPAY ==
--- NOTE | 2025-04-22 20:19 | HMH.EDGENADL ---
Discharge Plan Disposition Patient Disposition: Home, Self-Care Prescriptions Prescriptions: No Action omeprazole 20 mg capsule,delayed release(DR/EC) 20 mg PO DAILY atorvastatin 10 MG tablet 10 mg PO HS aspirin 81 MG tablet,chewable 81 mg PO DAILY carvedilol 12.5 mg Tablet 12.5 mg PO BID Rx Instructions: must administer with a meal/food triamterene-hydrochlorothiazid 37.5-25 mg capsule 1 cap PO DAILY Qty: 30 0RF Referrals Follow up/Referrals: Huey Tracy MD [Primary Care Provider, Internal Medicine] - See instructions Clinical Impressions Clinical Impression: Acute foreign body of right ear Print Language Print Language: Dominican Discharge ED Provider: Edwin Adan General Adult HPI General Chief complaint: Ear Stated complaint: FB in right ear Time Seen by Provider: 04/22/25 20:19 Mode of Arrival: Ambulatory Source of Information: Patient Limitations: No Limitations History of Present Illness HPI narrative: Comfort Tapia is an 85F who presents to the emergency department for complaints of a foreign body in her right ear. Patient states that tonight, she pulled her right hearing aid out and a rubber piece got stuck in the ear. They tried to get it out but it got pushed in further. They were having trouble seeing it so they came to the emergency department. Patient states that she can feel it still in her ear but denies any significant pain. She has no other complaints or concerns at this time. Related Data Home Medications ?Medication ?Instructions ?Recorded ?Confirmed aspirin 81 mg chewable tablet 81 mg PO DAILY Heart disease 07/08/21 04/14/23 atorvastatin 10 mg tablet 10 mg PO HS Cholesterol 07/08/21 04/14/23 omeprazole 20 mg capsule,delayed 20 mg PO DAILY Acid Reflux 03/30/22 04/14/23 release carvedilol 12.5 mg tablet 12.5 mg PO BID High Blood Pressure 04/14/23 04/14/23 Previous Rx's ?Medication ?Instructions ?Recorded triamterene 37.5 1 cap PO DAILY #30 caps 04/14/23 mg-hydrochlorothiazide 25 mg capsule Allergies Allergy/AdvReac Type Severity Reaction Status Date / Time No Known Allergies Allergy Verified 03/30/22 09:22 [facility] Disclaimer: The information contained in this section may have been updated after the patient was seen, as this information can be updated by other users. Social History Smoking Status: Never smoker alcohol intake: never substance use type: denies use current occupational status: retired Travel in the last 8 weeks?: None household members: none housing: house Other Medical History Have you received the Flu Vaccine for this season: No Have you received the Pneumonia Vaccine: Yes ROS Obtained: Yes Systems reviewed as appropriate & no additional complaints except as documented Physical Exam General General appearance: alert and in no apparent distress Head Head exam: atraumatic Eye Eye exam: Present normal appearance ENT ENT exam: Present normal external ear exam and other (right ear: Foreign body noted in the ear canal. This was removed with alligator forceps. Tympanic membrane was visualized after removal and was unremarkable with no perforation or effusion.) Neck Neck exam: Present full ROM Chest Chest inspection: Present symmetric chest wall rise Respiratory Respiratory exam: Present normal lung sounds bilaterally; Absent respiratory distress Cardiovascular Cardiovascular exam: Present regular rate and normal rhythm Abdominal Exam Abdominal exam: Present soft; Absent tenderness or guarding Extremities Exam Extremities exam: Present normal inspection Back Exam Back exam: Present normal inspection Neurological Exam Neurological exam: Present alert and oriented X3 Psychiatric Psychiatric exam: Present normal affect Skin Skin exam: Present warm and dry Medical Decision Making Medical Records Screening: Per USPSTF and CDC recommendations, given the prevalence of disease in our region, it is our hospital?s policy to screen for HIV and viral Hepatitis for all patients aged 18 and over and those with ongoing risk factors. Leonardo Inquiry Pt receiving controlled substance: No Vital Signs: 04/22/25 20:24 Temperature 98 F Temperature Source Oral Pulse Rate [Left] 91 H Respiratory Rate 18 Blood Pressure [Right Arm] 171/97 H Blood Pressure Mean [Right Arm] 121 Blood Pressure Source [Right Arm] Automatic Cuff Blood Pressure Position [Right Arm] Supine 02 Sat by Pulse Oximetry 98 Oxygen Delivery Method Room Air Medical Decision Narrative: Comfort Tapia is an 85F who presents to the emergency department for complaints of a foreign body in her right ear. Patient states that tonight, she pulled her right hearing aid out and a rubber piece got stuck in the ear. They tried to get it out but it got pushed in further. They were having trouble seeing it so they came to the emergency department. Patient states that she can feel it still in her ear but denies any significant pain. She has no other complaints or concerns at this time. On arrival, patient is hypertensive but hemodynamically stable. Physical exam, stated above, revealed a foreign body in the right ear canal. This appears to be a rubber tip to one of her hearing aids. This was removed with alligator forceps. See procedure note for details below. After this, I visualize the tympanic membrane and it appeared pearly mcintyre with no perforation or effusion. Patient had relief of her symptoms after this. Given this, is felt that she is appropriate for discharge at this time and no further workup is indicated. Procedures Foreign Body Removal Time Out Performed: No Site: right and ear Description of foreign body: other (rubber tip to hearing aid) Sedation/Analgesia: none Technique: removal with forceps Confirmed by:: direct visualization Complications: none Post-procedure exam: awake, alert Critical Care Critical Care Time Critical Care Time: No
[2025-04-22 20:24] VITALS: BP 171/97; PULSE 91; RESP 18; TEMP 36.6; O2SAT 98; BMI 24.5
--- OUTSIDE RECORDS SUMMARY | 2025-04-22 20:38 | XMS_ITS | Clinical Summary ---
Author Organization [facility] Address [address] [place] [address] Care Team Providers Care Train Master Name Role Phone Ana Paula Albarran AMY Primary Care Provider [phone]- [phone] Allergies Active Allergy Reactions Criticality Noted Date Comments Sulfamethoxazole Other - please docum ent in the comment field Low 07/24/2022 Nauseated Medications atenolol (Tenormin) 25 MG tablet 05/17/2022 Active omeprazole (PriLOSEC) [address] capsule 05/17/2022 Activ e ibuprofen 200 MG tablet Take 2 tablets (400 mg) by mouth every 6 (six) hours if needed for mild pain. Active ascorbic acid (vitamin C) 100 MG tablet Take 1 tablet (100 mg) by mouth 1 (one) time each day. Active aspirin 81 MG EC tablet Take 1 tablet (81 mg) by mouth 1 (one) time each day. Active atorvastatin (Lipitor) 10 MG tablet 10/13/2022 Active carvedilol (Coreg) 12.5 MG tablet 04/09/2023 Active triamterene-hyd roCHLOROthiazid e (Dyazide) 37.5-25 MG capsule 04/14/2023 Active Family History Medical History Relation Name Comments Lung cancer Brother Lung cancer Daughter Liver cancer Maternal Grandfather Relation Name Status Comments Brother Daughter Other Maternal Grandfather Social History Tobacco Use Types Packs/Day Years Used Date Smoking Tobacco: Never Smokeless Tobacco: Never Tobacco Cessation:Counseling Given: Not Answered Alcohol Use Standard Drinks/Week Comments Defer 0 (1 standard drink = 0.6 oz pur e alcohol) PHQ-2 Answer Date Recorded Patient Health Questionnaire-2 Score 0 02/11/2024 PHQ-2A Answer Date Recorded Patient Health Questionnaire-2 Score 0 05/01/2023 Comments Unknown Sex and Gender Information Value Date Recorded Sex Assigned at Not on file Legal Sex Female 9:11 AM EDT Gender Identity Not on file Sexual Orientation Not on file Last Filed Vital Signs Vital Sign Reading Time Taken Comments Blood Pressure 110/80 04/18/2023 12:10 PM EDT Pulse 67 04/18/2023 12:10 PM EDT Temperature - - Respiratory Rate - - Oxygen Saturation - - Inhaled Oxygen Concentration - - Weight 59 kg (130 lb) 05/01/2023 9:06 AM EDT Height 152.4 cm (5') 05/01/2023 9:06 AM EDT Body Mass Index 25.39 05/01/2023 9:06 AM EDT Plan of Treatment Health Maintenance Due Date Last Done Comments [facility]-Bone Density Scan 1940 [facility]-Medicare Annual Wellness (AWV) 1940 [facility]-Infant/Child/Adol SDOH Screenings 1940 [facility]- SDOH Screenings 01/29/1960 [facility]-Adult SDOH Screenings 01/29/1960 [facility]-DTaP,Tdap,and Td Vaccine s (1 - Tdap) 1961 [facility]-Zoster Vaccines (1 of 2) 01/29/1992 [facility]-RSV Vaccine: 60+ Years o r (1 - 1-dose 75+ series) 2017 [id number] Vaccine (3 - Pfizer risk series) 06/23/2021 05/26/2021, 05/05/2021 [facility]-Depression Screening 02/10/2025 02/11/2024 [facility]-Influenza Vaccine (#1) 2025 08/18/2020 [facility]-Pneumococcal Vaccine: 50 + Years Completed 04/04/2021, 08/20/2019 [facility]-Obesity Intervention Completed 024, 05/01/2023, 07/24/2022 HPV Vaccines Aged Out No longer eligi ble based on patient's age to complete this topic [facility]-HIB Vaccines Aged Out No longer e ligible based on patient's age to complete this topic [facility]-Hepatitis A Vaccines Aged Out No longer eligible based on patient's age to complete this topic [facility]-IPV Vaccines Aged Out No longer e ligible based on patient's age to complete this topic [facility]-Rotavirus Vaccines Aged Out No lo nger eligible based on patient's age to complete [place] [address] [employer] Care Teams Train Master Relationship Specialty Start Date End Date Ana Paula Albarran APRN [facility] [place] [address] PCP - General 06/22/22
--- OUTSIDE RECORDS SUMMARY | 2025-04-22 20:38 | XMS_ITS | Encounter Summary ---
Author Organization Healthcare Address [address] [place] [address] Care Team Providers Care Nursing Teacher Name Role Phone Ana Paula Albarran APRN Primary Care Provider [phone]- [phone] Encounter Details Date Type Department Care Team ([facility] st Contact Info) Description 01/19/2022 Orders Only External Location [address] [place] [address] Provider, External Social History Tobacco Use Types Packs/Day Years Used Date Smoking Tobacco: Never Assessed Comments Unknown Sex and Gender Information Value Date Recorded Sex Assigned at Not on file Legal Sex Female 9:11 AM EDT Gender Identity Not on file Sexual Orientation Not on file documented as of this encounter Plan of Treatment Not on file documented as of this encounter Procedures Procedure Name Priority Date/Time Associated Diagnosis Comments CT ABDOMEN OUTSIDE IMAGES 01/19/2022 6:54 AM EDT documented in this encounter Results * CT ABDOMEN OUTSIDE IMAGES (01/19/2022 6:54 AM EDT) Anatomical Region Laterality Modality Computed Tomogra phy 01/19/2022 6:54 AM EDT us External Provider IMG CT PROCEDURES Final Result documented in this encounter Visit Diagnoses Not on filedocumented in this encounter Care Teams Nursing Teacher Relationship Specialty Start Date End Date Ana Paula Albarran APRN [address] [place], [place] [id number] PCP - General 06/22/22 documented as of this encounter
--- OUTSIDE RECORDS SUMMARY | 2025-04-22 20:38 | XMS_ITS | Encounter Summary ---
Author Organization Healthcare Address [address] [place] [address] Care Team Providers Care Harvest Worker Name Role Phone Ana Paula Albarran APRN Primary Care Provider [phone]- [phone] Encounter Details Date Type Department Care Team ([facility] st Contact Info) Description 02/16/2022 Orders Only External Location [address] [place] [address] Provider, External Social History Tobacco Use Types [...] Associated Diagnosis Comments CT ABDOMEN OUTSIDE IMAGES 02/16/2022 9:28 AM EDT documented in this encounter Results * CT ABDOMEN OUTSIDE IMAGES (02/16/2022 9:28 AM EDT) Anatomical Region Laterality Modality Computed Tomogra phy 02/16/2022 9:28 AM EDT us External Provider IMG CT PROCEDURES Final Result documented in this encounter Visit Diagnoses Not on filedocumented in this encounter Care Teams Harvest Worker Relationship Specialty Start Date End Date Ana Paula Albarran APRN [address] [place], [place] [id number] PCP - General 06/22/22 documented as of this encounter
[2025-04-22 20:58] VITALS: BP 155/75; PULSE 84; RESP 18; TEMP 36.6; O2SAT 100
== END 2025-04-22 20:58 | disposition home or self-care (01) ==
LOC: ER 20:37
PROVIDERS: Emergency Provider Student in an Organized Health Care Education/Training Program; PCP Internal Medicine Adolescent Medicine
DX: T16.1XXA Foreign body in right ear, initial encounter (principal); W44.8XXA Other foreign body entering into or through a natural orifice, initial encounter
CPT/HCPCS: 99282

== ENCOUNTER 2025-06-28 09:24 | Emergency (ER) | payer MEDICARE, SELFPAY ==
[2025-06-28] VITALS (18 sets, daily range): BP systolic 155–186; BP diastolic 28–87; PULSE 56–75; RESP 16–19; TEMP 36.6–36.7; O2SAT 95–98; BMI 25.2
--- OUTSIDE RECORDS SUMMARY | 2025-06-28 09:33 | XMS_ITS | Encounter Summary ---
Author Organization Healthcare Address [address] [place] [address] Care Team Providers Care Banker Mason Name Role Phone Ana Paula Albarran APRN Primary Care Provider +1- [phone] Encounter Details Date Type Department Care Team ([facility] st Contact Info) Description 01/19/2022 Orders Only External Location [address] [place] [address] Provider, External Social History Tobacco Use Types [...] on filedocumented in this encounter Care Teams Banker Mason Relationship Specialty Start Date End Date Ana Paula Albarran APRN [address] [place], [place] [phone] PCP - General 06/22/22 documented as of this encounter
--- OUTSIDE RECORDS SUMMARY | 2025-06-28 09:33 | XMS_ITS | Encounter Summary ---
Author Organization Healthcare Address [address] [place] [address] Care Team Providers Care Concrete Block Plant Supervisor Name Role Phone Ana Paula Albarran APRN Primary Care Provider +1- [phone] Encounter Details Date Type Department Care Team ([facility] st Contact Info) Description 02/16/2022 Orders Only External Location [address] [place] [address] Provider, External Social History Tobacco Use Types [...] on filedocumented in this encounter Care Teams Concrete Block Plant Supervisor Relationship Specialty Start Date End Date Ana Paula Albarran APRN [address] [place], [place] [id number] PCP - General 06/22/22 documented as of this encounter
--- OUTSIDE RECORDS SUMMARY | 2025-06-28 09:33 | XMS_ITS | Clinical Summary ---
Author Organization [facility] Address [address] [place] [address] Care Team Providers Care Leather Stamper Name Role Phone Ana Paula Albarran AMY Primary Care Provider [phone] Allergies Active Allergy Reactions Criticality Noted Date [...] Scan 1942 [facility]-Medicare Annual Wellness (AWV) 1942 [facility]-/Child/Adol SDOH Screenings 1942 [facility]- SDOH Screenings 01/29/1960 [facility]-Adult SDOH Screenings 01/29/1960 [facility]-DTaP,Tdap,and Td Vaccine s (1 - Tdap) 1961 [facility]-Zoster Vaccines (1 of 2) 01/29/1992 [facility]-RSV Vaccine: 60+ Years o r (1 - 1-dose 75+ series) 2017 [id number] Vaccine (3 - Pfizer risk series) 06/23/2021 [...] age to complete [place] [address] [employer] MEDICARE Care Teams Leather Stamper Relationship Specialty Start Date End Date Ana Paula Albarran APRN [facility] [place] [address] PCP - General 06/22/22
--- NOTE | 2025-06-28 10:16 | CT_ITS ---
PROCEDURE INFORMATION: Exam: CT Cervical Spine Without Contrast Exam date and time: 06/28/2025 10:29 AM Age: 85 years old Clinical indication: Neck pain; Additional info: Atraumatic cervical spine pain TECHNIQUE: Imaging protocol: Computed tomography of the cervical spine without contrast. Radiation optimization: All CT scans at this facility use at least one of these dose optimization techniques: automated exposure control; mA and/or kV adjustment per patient size (includes targeted exams where dose is matched to clinical indication); or iterative reconstruction. COMPARISON: CR XR CERVICAL SPINE 4V 07/05/2023 11:13 AM FINDINGS: Limitations: There is diffuse osteopenia. This decreases the sensitivity for identifying fractures, especially nondisplaced fractures. Bones: There is mild cervical kyphosis due to multilevel cervical disc narrowing. C2-C3: No disc bulge, spinal canal stenosis or neural foraminal narrowing. C3-C4: Small posterior disc osteophyte complex with mild spinal canal stenosis. Mild bilateral neural foraminal narrowing. C4-C5: 2 mm anterolisthesis. Small posterior disc osteophyte complex. No significant spinal canal stenosis. Mild bilateral neural foraminal narrowing. C5-C6: 2 mm retrolisthesis. Small posterior disc osteophyte complex. Mild spinal canal stenosis. Moderate bilateral neural foraminal narrowing. C6-C7: Small posterior disc osteophyte complex. Mild spinal canal stenosis. Mild bilateral neural foraminal narrowing. C7-T1: 2 mm anterolisthesis. No disc bulge, spinal canal stenosis or neural foraminal narrowing. The remaining visible upper thoracic spine intervertebral discs demonstrate no disc bulge, spinal canal stenosis or significant neural foraminal narrowing. Lungs: Lung apices are normal. Soft tissues: 4 mm soft tissue density nodule image 1001/44. IMPRESSION: Multilevel [id number] cervical spondylosis as described. No severe spinal canal stenosis or neural foraminal narrowing.
--- NOTE | 2025-06-28 10:17 | ED_ITS ---
Discharge Plan Disposition Patient Disposition: Home, Self-Care Prescriptions Prescriptions: New lidocaine 4 % adhesive patch,medicated 1 patch topical DAILY Qty: 5 0RF Rx Instructions: may leave on for up to 12 hrs cyclobenzaprine 5 mg tablet 5 mg PO TID PRN (Reason: muscle spasm) 5 Days Qty: 15 0RF No Action omeprazole 20 mg capsule,delayed release(DR/EC) 20 mg PO DAILY atorvastatin 10 MG tablet 10 mg PO HS aspirin 81 MG tablet,chewable 81 mg PO DAILY carvedilol 12.5 mg Tablet 12.5 mg PO BID Rx Instructions: must administer with a meal/food triamterene-hydrochlorothiazid 37.5-25 mg capsule 1 cap PO DAILY Qty: 30 0RF Referrals Follow up/Referrals: Tor Hoang MD [Nurse Practitioner, Pain Management] - See instructions Huey Tracy MD [Primary Care Provider, Internal Medicine] - See instructions Activity Restrictions/Add. Instructions Additional Instructions/Restrictions: Your CT scan shows moderate to severe cervical arthritis/spondylosis. You may benefit from injections therefore have given you a follow-up referral to Dr. Hoang who is a pain specialist that works here at [facility]. No evidence of any surgical emergency at the moment. Return with any significant weakness in the right upper extremity or other concerns. Clinical Impressions Clinical Impression: Arthralgia of cervical spine, Cervical spondylosis Print Language Print Language: Cypriot Discharge ED Provider: Dick Estrada General Adult HPI General Chief complaint: PAIN Stated complaint: pain right side of neck, limited movement rt arm Time Seen by Provider: 06/28/25 10:09 Mode of Arrival: Ambulatory Source of Information: Patient Description of Symptoms (Recalled from ER Triage Doc. by RN): pt presents to ED with c/o pain in right side of neck. pt reports that she lifted an oxygen tank into the trunko f her car on sunday and since then has felt like she has a pinched nerve since that incident. pt reports pain worsenes when she attempts to lift her arm up and turn her head to the right. History of Present Illness HPI narrative: Patient is an 85-year-old female presenting today with cervical spine and right lateral neck discomfort. She states that she believes this began when she lifted a heavy oxygen tank on Sunday. She feels that she has pinched a nerve she has no radiating symptoms down her arm. She does state that it is exacerbated with movement. Pain is located just on the right lateral aspect of the mid cervical spine. No weakness in the right upper extremity no changes in sensation. No swelling redness fevers etc. She has known arthritis in her neck she states. Related Data Home Medications ?Medication ?Instructions ?Recorded ?Confirmed aspirin 81 mg chewable tablet 81 mg PO DAILY Heart dis ease 07/08/21 04/14/23 atorvastatin 10 mg tablet 10 mg PO HS Cholesterol 06/1604/14/23 omeprazole 20 mg capsule,delayed 20 mg PO DAILY Acid R eflux 03/30/22 04/14/23 release carvedilol 12.5 mg tablet 12.5 mg PO BID High Blood Pr essure 04/14/23 04/14/23 Previous Rx's ?Medication ?Instructions ?Recorded triamterene 37.5 1 cap PO DAILY #30 caps 11/06 mg-hydrochlorothiazide 25 mg capsule cyclobenzaprine 5 mg tablet 5 mg PO TID PRN muscle spa sm 5 06/28/25 days #15 tabs lidocaine 4 % topical patch 1 patch topical DAILY #5 e a 06/28/25 Allergies Allergy/AdvReac Type Severity Reaction Status Date / Time No Known Allergies Allergy Verified 03/30/22 09:22 [facility] Disclaimer: The information contained in this section may have been updated after the patient was seen, as this information can be updated by other users. Social History Smoking Status: Never smoker alcohol intake: never substance use type: denies use current occupational status: retired Travel in the last 8 weeks?: None household members: none housing: house Have you lived/traveled outside [place] in past 30 days?: No Contact w/someone who lives/traveled outside US past 30 days?: No Exposure to someone with infectious disease in past 14 days?: No Do you have a fever (greater than 100.4 F or 38 C)?: No Have you tested positive for COVID-19?: No Exposed to someone with COVID-19 in past 14 days?: No Do you have a sore throat?: No Do you have a cough?: No Do you have any weakness?: No Do you have any diarrhea?: No Are you experiencing any unusual bleeding?: No Do you have any muscle aches/pain?: No Do you have any abdominal pain?: No Are you experiencing loss of taste or smell?: No Other Medical History Have you received the Flu Vaccine for this season: No Have you received the Pneumonia Vaccine: Yes ROS Obtained: Yes All systems reviewed & no additional complaints except as documented Physical Exam General General appearance: alert and in no apparent distress Neck Neck exam: Present tenderness (Patient has midline and right paraspinal tenderness no step-offs or deformities normal median ulnar radial axillary motor and sensory exam right upper extremity pulses normal right upper extremity) Respiratory Respiratory exam: Present normal lung sounds bilaterally Cardiovascular Cardiovascular exam: Present regular rate Neurological Exam Neurological exam: Present alert and oriented X3 Medical Decision Making Medical Records Screening: Per USPSTF and CDC recommendations, given the prevalence of disease in our region, it is our hospital?s policy to screen for HIV and viral Hepatitis for all patients aged 18 and over and those with ongoing risk factors. Leonardo Inquiry Pt receiving controlled substance: No Vital Signs: 06/28/25 09:29 06/28/25 09:30 06/28/25 09:33 Temperature 97.9 F Temperature Source Oral Pulse Rate 71 71 Pulse Rate [Left Radial] 73 Respiratory Rate 19 Blood Pressure 186/81 H 175/87 H Blood Pressure [Right Arm] 186/81 H Blood Pressure Mean [Right Arm] 116 02 Sat by Pulse Oximetry 98 98 98 Oxygen Delivery Method Room Air 06/28/25 10:24 06/28/25 10:38 06/28/25 10:41 Temperature Temperature Source Pulse Rate 64 66 61 Pulse Rate [Left Radial] Respiratory Rate Blood Pressure 181/79 H 184/78 H 165/82 H Blood Pressure [Right Arm] Blood Pressure Mean [Right Arm] 02 Sat by Pulse Oximetry 98 98 96 Oxygen Delivery Method 06/28/25 10:50 06/28/25 11:00 06/28/25 11:10 Temperature Temperature Source Pulse Rate 62 60 58 L Pulse Rate [Left Radial] Respiratory Rate Blood Pressure 180/78 H 172/28 H 181/75 H Blood Pressure [Right Arm] Blood Pressure Mean [Right Arm] 02 Sat by Pulse Oximetry 96 97 97 Oxygen Delivery Method 06/28/25 11:20 06/28/25 11:30 06/28/25 11:40 Temperature Temperature Source Pulse Rate 57 L 57 L 56 L Pulse Rate [Left Radial] Respiratory Rate Blood Pressure 177/73 H 177/74 H 169/71 H Blood Pressure [Right Arm] Blood Pressure Mean [Right Arm] 02 Sat by Pulse Oximetry 98 97 96 Oxygen Delivery Method 06/28/25 11:45 06/28/25 12:00 06/28/25 12:10 Temperature Temperature Source Pulse Rate 61 64 64 Pulse Rate [Left Radial] Respiratory Rate Blood Pressure 184/77 H 182/86 H 155/77 H Blood Pressure [Right Arm] Blood Pressure Mean [Right Arm] 02 Sat by Pulse Oximetry 97 96 96 Oxygen Delivery Method 06/28/25 12:21 06/28/25 12:30 06/28/25 12:38 Temperature 98.0 F Temperature Source Pulse Rate 61 66 75 Pulse Rate [Left Radial] Respiratory Rate 16 Blood Pressure 171/75 H 180/86 H 180/86 H Blood Pressure [Right Arm] Blood Pressure Mean [Right Arm] 02 Sat by Pulse Oximetry 95 95 Oxygen Delivery Method Orders (Tests/Meds): ED MEDICATIONS Discontinued Medications Generic Name Dose Route Start Last Admin Trade Name Freq PRN Reason Stop Dose Admin Dexamethasone Sodium Phosphate 10 mg 06/28/25 10:18 06/28/25 10:34 Dexamethasone 4mg/Ml 1ml Vial IM 06/28/25 10:19 10 mg ONCE ONE Administration Lidocaine 1 each 06/28/25 10:16 06/28/25 10:35 Lidocaine 5% Transdermal Patch TD 06/28/25 10:17 1 each ONCE ONE Administration ORDERS Category Date Time Status CT cervical spine wo con Stat Cat Scan 06/28/25 10:16 Completed Medical Decision Narrative: Patient with above history and physical likely localized inflammatory musculoskeletal strain versus cervical arthralgia from known degenerative disease and arthritis. Will get a noncontrasted CT scan given her age and the localization near the spine. Her motor exam is normal sensory exam is normal pulses are normal not worried about any emergent neurovascular emergency. Will give her symptomatic medications and reassess. Of note she states that her renal function has been worsening recently and she cannot take NSAIDs. Reassessment 12:40 PM patient symptomatically has improved continues to have a normal neurologic and vascular exam CT scan was performed to personally interpreted which shows chronic degenerative changes and evidence of cervical spondylosis but no acute emergent pathology. Patient's been advised to follow- up with Dr. Hoang our pain interventional specialist for possible evaluation for facet injections or epidurals etc. Symptomatic medications have been prescribed patient has been given return precautions and discharged in stable condition. Critical Care Critical Care Time Critical Care Time: No
[2025-06-28] MEDS: DEXAMETHASONE 4MG/ML 1ML VIAL 10 MG IM (10:34)
[2025-06-28] MEDS: LIDOCAINE 5% TRANSDERMAL PATCH 1 EACH TD (10:35)
== END 2025-06-28 12:38 | disposition home or self-care (01) ==
PROVIDERS: Emergency Provider Student in an Organized Health Care Education/Training Program; PCP Internal Medicine Adolescent Medicine
DX: M47.812 Spondylosis without myelopathy or radiculopathy, cervical region (principal); M54.2 Cervicalgia
CPT/HCPCS: 72125; 96372; 99284; J1100